=== PATIENT | male | born 1970 | race Caucasian/White ===

== ENCOUNTER 2019-11-15 10:02 | Emergency (ER) | payer SELFPAY ==
--- NOTE | 2019-11-15 11:26 | CR ---
Chest: Portable view of the chest was obtained. Comparison: No prior chest imaging is available. Heart size and mediastinum are normal. Linear density is noted within the left lung base most likely due to atelectasis. Lungs otherwise are clear. Bony structures are grossly intact. Impression: 1. Linear density within the left lung base most likely due to atelectasis. 2. Nothing acute is otherwise seen on portable chest x-ray. Diagnostic code #2 This report was dictated in MDT
--- NOTE | 2019-11-15 11:57 | EDM.PDOC ---
ED HPI GENERAL MEDICAL PROBLEM - General Chief Complaint: Chest Pain Stated Complaint: CHEST TIGHTNESS/FLU LIKE SYMPTOMS Time Seen by Provider: 11/15/19 10:36 Source of Information: Reports: Patient, RN Notes Reviewed - History of Present Illness INITIAL COMMENTS - FREE TEXT/NARRATIVE: 49 yr old male with cough, nasal lorraine., fever, chills, myalgias for about a 6 days. He covid tested neg. about 7 days ago. No difficulty breathing. Feels a little better today than yesterday. 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 [employer] Neurological History: Reports: Concussion Psychiatric History: Reports: None Endocrine/Metabolic History: Reports: None Hematologic History: Reports: None Immunologic History: Reports: None Oncologic (Cancer) History: Reports: None Dermatologic History: Reports: None - Infectious Disease History Infectious Disease History: Reports: Chicken Pox - Past Surgical History Head Surgeries/Procedures: Reports: None HEENT Surgical History: Reports: Oral Surgery Male Surgical History: Reports: None Social & Family History - Family History HEENT: Reports: None Cardiac: Reports: High Cholesterol, Hypertension Respiratory: Reports: None GI: Reports: None : Reports: None OBGYN: Reports: None Musculoskeletal: Reports: None Neurological: Reports: None Psychiatric: Reports: None Endocrine/Metabolic: Reports: Diabetes, type II Hematologic: Reports: None Immunologic: Reports: None Dermatologic: Reports: None Oncologic: Reports: Colon, Prostate - Tobacco Use Smoking Status *Q: Current Every Day Smoker Years of Tobacco use: 30 Packs/Tins Daily: 2.5 - Caffeine Use Caffeine Use: Reports: Coffee, Soda - Recreational Drug Use Recreational Drug Use: No ED ROS GENERAL - Review of Systems Review Of Systems: See Below Constitutional: Reports: Fever, Chills HEENT: Reports: Rhinitis, Throat Pain Respiratory: Reports: Cough. Denies: Shortness of Breath, Sputum Cardiovascular: Denies: Chest Pain Endocrine: Reports: Fatigue GI/Abdominal: Reports: Decreased Appetite. Denies: Abdominal Pain, Diarrhea, Vomiting Musculoskeletal: Reports: Other (generalized myalgias) Skin: Denies: Rash Neurological: Reports: Dizziness, Headache ED EXAM, GENERAL - Physical Exam Exam: See Below General Appearance: Alert, No Apparent Distress Head: Atraumatic Neck: Supple Respiratory/Chest: No Respiratory Distress, Lungs Clear, Normal Breath Sounds. No: Rhonchi, Wheezing Cardiovascular: Regular Rate, Rhythm Extremities: Normal Inspection, Normal Range of Motion Neurological: Alert, Oriented, No Motor/Sensory Deficits Skin Exam: Warm, Dry, Normal Color, No Rash Course - Vital Signs Last Recorded V/S: Last Vital Signs Temp 97.5 F 11/15/19 10:23 Pulse 76 11/15/19 10:23 Resp 18 11/15/19 10:23 BP 147/86 H 11/15/19 10:23 Pulse Ox 96 11/15/19 10:23 - Orders/Labs/Meds Orders: Active Orders 24 hr Category Date Time Status CORONAVIRUS COVID-19 PCR [facility]L Stat Lab 11/15/19 11:12 Received - Re-Assessments/Exams Free Text/Narrative Re-Assessment/Exam: 11/15/19 14:25 CXR nl, discharge instr. as documented. Departure - Departure Time of Disposition: 11:52 Disposition: Home, Self-Care 01 Condition: Fair Clinical Impression: Viral syndrome - Discharge Information Instructions: Viral Illness, Adult Referrals: PCP,None [Primary Care Provider] - Forms: ED Department Discharge, ED Department Discharge, ED Return to Work/School Form Additional Instructions: Your CXR does not show pneumonia. Your oxygen reading are good. Your symptoms strongly suggest you do have Covid infection. [facility] We will contact you in 2 to 3 days when your results become available to notify you of results. Self Isolate until you hear results. Tylenol if needed for fever or discomfort. Return to ED for severe difficulty breathing or otherwise as needed. Sepsis Event Note (ED) - Evaluation Sepsis Screening Result: No Definite Risk - Focused Exam Vital Signs: Vital Signs Temp Pulse Resp BP Pulse Ox 11/15/19 10:23 97.5 F 76 18 147/86 H 96 - My Orders Last 24 Hours: My Active Orders 11/15/19 11:12 CORONAVIRUS COVID-19 PCR PHL Stat - Assessment/Plan Last 24 Hours: My Active Orders 11/15/19 11:12 CORONAVIRUS COVID-19 PCR PHL Stat
== END 2019-11-15 12:07 | disposition home or self-care (01) ==
LOC: JD.ED 10:02
DX: B34.9 Viral infection, unspecified (principal); F17.210 Nicotine dependence, cigarettes, uncomplicated; Z20.828 Contact with and (suspected) exposure to other viral communicable diseases; Z91.030 Bee allergy status
CPT/HCPCS: 71045; 71045-26; 99282; 99283-25; U0002

== ENCOUNTER 2020-02-03 10:38 | Emergency (ER) | payer BC ==
[2020-02-03] MEDS ORDERED: Albuterol 6.7 GM Inhaler INH ONE (11:30)
--- NOTE | 2020-02-03 11:39 | EDM.PDOC ---
ED HPI GENERAL MEDICAL PROBLEM - General Chief Complaint: Chest Pain Stated Complaint: COVID +/SOB/CHEST PAIN/COUGH Time Seen by Provider: 02/03/20 11:01 Source of Information: Reports: Patient History Limitations: Reports: No Limitations - History of Present Illness INITIAL COMMENTS - FREE TEXT/NARRATIVE: The patient presents with a cough, shortness of breath and COVID 19 infection. He started having symptoms on 01/17. He was tested a few days after and it was negative. He was tested again on 01/24 and he tested positive. He has had fever, chills, headache, body aches, chest tightness, cough, shortness of breath and diarrhea. He is a former smoker. He has no health problems such as heart disease, HTN, hypercholesterolemia and diabetes. His significant other was seen here a few days ago and transferred to [facility] for admission. His symptoms are worse lately. Onset: Gradual Duration: Week(s): Location: Reports: Chest Quality: Reports: Other (tightness) Severity: Mild Improves with: Reports: None Worsens with: Reports: None Associated Symptoms: Reports: Chest Pain, Cough, Fever/Chills, Headaches, Shortness of Breath. Denies: Nausea/Vomiting Chest Pain Score (Numeric/FACES): 10 - Related Data Allergies Allergy/AdvReac Type Severity Reaction Status Date / Time bees Allergy Hives Uncoded 11/15/19 10:20 Home Meds: Home Meds dexAMETHasone [Dexamethasone] 1.5 tab PO DAILY #12 tab 02/03/20 [Rx] Past Medical History HEENT History: Reports: Impaired Vision Other HEENT History: wears eyeglasses Cardiovascular History: Reports: None Respiratory History: Reports: Pneumonia, Recurrent Gastrointestinal History: Reports: GERD Genitourinary History: Reports: None Musculoskeletal History: Reports: Back Pain, Chronic Other Musculoskeletal History: 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 Neurological History: Reports: Concussion, Migraines Psychiatric History: Reports: None Endocrine/Metabolic History: Reports: None Hematologic History: Reports: None Immunologic History: Reports: None Oncologic (Cancer) History: Reports: None Dermatologic History: Reports: None - Infectious Disease History Infectious Disease History: Reports: Chicken Pox, Influenza, Novel Coronavirus - Past Surgical History HEENT Surgical History: Reports: Oral Surgery, Other (See Below) Other HEENT Surgeries/Procedures: wisdom teeth extracted. Musculoskeletal Surgical History: Reports: Other (See Below) Other Musculoskeletal Surgeries/Procedures:: cyst removed T5-T6 area Social & Family History - Family History HEENT: Reports: None Cardiac: Reports: High Cholesterol, Hypertension Respiratory: Reports: None GI: Reports: None : Reports: None OBGYN: Reports: None Musculoskeletal: Reports: None Neurological: Reports: None Psychiatric: Reports: None Endocrine/Metabolic: Reports: Diabetes, type II Hematologic: Reports: None Immunologic: Reports: None Dermatologic: Reports: None Oncologic: Reports: Colon, Prostate - Tobacco Use Tobacco Use Status *Q: Former Tobacco User Years of Tobacco use: 20 Packs/Tins Daily: 2.5 Used Tobacco, but Quit: Yes Month/Year Tobacco Last Used: Oct 2019 - Caffeine Use Caffeine Use: Reports: Coffee, Tea - Recreational Drug Use Recreational Drug Use: No ED ROS GENERAL - Review of Systems Review Of Systems: See Below Constitutional: Reports: Fever, Chills, Malaise, Weakness, Fatigue HEENT: Reports: No Symptoms Respiratory: Reports: Shortness of Breath, Cough Cardiovascular: Reports: Chest Pain Endocrine: Reports: No Symptoms GI/Abdominal: Reports: Diarrhea. Denies: Abdominal Pain, Nausea, Vomiting : Reports: No Symptoms Musculoskeletal: Reports: No Symptoms Skin: Reports: No Symptoms ED EXAM, GENERAL - Physical Exam Exam: See Below Exam Limited By: No Limitations General Appearance: Alert, No Apparent Distress Ears: Normal External Exam Nose: Normal Inspection Head: Atraumatic, Normocephalic Neck: Normal Inspection Respiratory/Chest: No Respiratory Distress, Lungs Clear, Normal Breath Sounds Cardiovascular: Regular Rate, Rhythm, No Edema, No Murmur GI/Abdominal: Soft, Non-Tender, No Organomegaly, No Mass Back Exam: Normal Inspection Extremities: Normal Inspection Course - Vital Signs Last Recorded V/S: Last Vital Signs Temp 97.5 F 02/03/20 11:00 Pulse 96 02/03/20 11:00 Resp 22 H 02/03/20 11:00 BP 115/76 02/03/20 11:00 Pulse Ox 94 L 02/03/20 11:52 - Orders/Labs/Meds Orders: Active Orders 24 hr Category Date Time Status Cardiac Monitoring [RC] . DIRECTED Care 02/03/20 11:28 Active EKG Documentation Completion [RC] STAT Care 02/03/20 11:29 Active RT Post Treatment Assessment [RC] Click to Edit Care 02/03/20 11:30 Active RT Pre-Treatment Assessment [RC] Click to Edit Care 02/03/20 11:30 Active Chest 1V Frontal [CR] Stat Exams 02/03/20 11:29 Taken Labs: Laboratory Tests 02/03/20 02/03/20 02/03/20 Range/Units 11:59 11:59 11:59 WBC 4.11 L (4.23-9.07) K/mm3 RBC 5.66 (4.63-6.08) M/mm3 Hgb 14.8 (13.7-17.5) gm/dl Hct 43.3 (40.1-51.0) % MCV 76.5 L (79.0-92.2) fl MCH 26.1 (25.7-32.2) pg MCHC 34.2 (32.2-35.5) g/dl RDW Std Deviation 40.3 (35.1-43.9) fL Plt Count 132 L (163-337) K/mm3 MPV 11.4 (9.4-12.3) fl Neut % (Auto) 55.1 (34.0-67.9) % Lymph % (Auto) 33.6 (21.8-53.1) % [place] % (Auto) 10.9 (5.3-12.2) % Eos % (Auto) 0.2 L (0.8-7.0) Baso % (Auto) 0.2 (0.1-1.2) % Neut # (Auto) 2.26 (1.78-5.38) K/mm3 Lymph # (Auto) 1.38 (1.32-3.57) K/mm3 [place] # (Auto) 0.45 (0.30-0.82) K/mm3 Eos # (Auto) 0.01 L (0.04-0.54) K/mm3 Baso # (Auto) 0.01 (0.01-0.08) K/mm3 D-Dimer, Quantitative 0.48 (0.19-0.50) mg/L Sodium 139 (136-145) mEq/L Potassium 3.9 (3.5-5.1) mEq/L Chloride 104 (98-107) mEq/L Carbon Dioxide 18 L (21-32) mEq/L Anion Gap 20.9 H (5-15) BUN 14 (7-18) mg/dL Creatinine 1.1 (0.7-1.3) mg/dL Est Cr Clr Drug Dosing 77.62 mL/min Estimated GFR (MDRD) > 60 (>60) mL/min BUN/Creatinine Ratio 12.7 L (14-18) Glucose 101 (74-106) mg/dL Lactic Acid (0.4-2.0) mmol/L Calcium 8.5 (8.5-10.1) mg/dL Ferritin (26-388) ng/ml Total Bilirubin 0.5 (0.2-1.0) mg/dL AST 10 L (15-37) U/L ALT 41 (16-63) U/L Alkaline Phosphatase 100 (46-116) U/L Lactate Dehydrogenase 238 H (85-227) U/L Troponin I < 0.017 (0.00-0.056) ng/mL C-Reactive Protein 0.9 (<1.0) mg/dL Total Protein 7.2 (6.4-8.2) g/dl Albumin 3.5 (3.4-5.0) g/dl Globulin 3.7 gm/dL Albumin/Globulin Ratio 1.0 (1-2) 02/03/20 02/03/20 Range/Units 11:59 11:59 WBC (4.23-9.07) K/mm3 RBC (4.63-6.08) M/mm3 Hgb (13.7-17.5) gm/dl Hct (40.1-51.0) % MCV (79.0-92.2) fl MCH (25.7-32.2) pg MCHC (32.2-35.5) g/dl RDW Std Deviation (35.1-43.9) fL Plt Count (163-337) K/mm3 MPV (9.4-12.3) fl Neut % (Auto) (34.0-67.9) % Lymph % (Auto) (21.8-53.1) % [place] % (Auto) (5.3-12.2) % Eos % (Auto) (0.8-7.0) Baso % (Auto) (0.1-1.2) % Neut # (Auto) (1.78-5.38) K/mm3 Lymph # (Auto) (1.32-3.57) K/mm3 [place] # (Auto) (0.30-0.82) K/mm3 Eos # (Auto) (0.04-0.54) K/mm3 Baso # (Auto) (0.01-0.08) K/mm3 D-Dimer, Quantitative (0.19-0.50) mg/L Sodium (136-145) mEq/L Potassium (3.5-5.1) mEq/L Chloride (98-107) mEq/L Carbon Dioxide (21-32) mEq/L Anion Gap (5-15) BUN (7-18) mg/dL Creatinine (0.7-1.3) mg/dL Est Cr Clr Drug Dosing mL/min Estimated GFR (MDRD) (>60) mL/min BUN/Creatinine Ratio (14-18) Glucose (74-106) mg/dL Lactic Acid 0.9 (0.4-2.0) mmol/L Calcium (8.5-10.1) mg/dL Ferritin 592 H (26-388) ng/ml Total Bilirubin (0.2-1.0) mg/dL AST (15-37) U/L ALT (16-63) U/L Alkaline Phosphatase (46-116) U/L Lactate Dehydrogenase (85-227) U/L Troponin I (0.00-0.056) ng/mL C-Reactive Protein (<1.0) mg/dL Total Protein (6.4-8.2) g/dl Albumin (3.4-5.0) g/dl Globulin gm/dL Albumin/Globulin Ratio (1-2) Meds: Medications Discontinued Medications Generic Name Dose Route Start Last Admin Trade Name Freq PRN Reason Stop Dose Admin Albuterol 0 gm 02/03/20 11:30 02/03/20 11:45 Proventil Hfa INH 02/03/20 11:31 2 each ONETIME ONE Administration - Re-Assessments/Exams Free Text/Narrative Re-Assessment/Exam: 02/03/20 11:39 I ordered a CXR, labs and albuterol 2 puffs. 02/03/20 13:08 His CXR shows new bilateral peripheral pulmonary infiltrates and probable enlarged hilar lymph nodes. His WBC is a little low at 4.14. His D-dimer is negative. His anion gap is elevated at 20.4. His LDH is elevated at 238. His troponin is negative along with his CRP. His oxygen saturations do dip down to 89%. He does recover nicely. I do not feel he needs to be admitted at this time. I will get him on some dexamethasone and albuterol. Departure - Departure Time of Disposition: 13:15 Disposition: Home, Self-Care 01 Condition: Good Clinical Impression: COVID-19, Pneumonia due to COVID-19 virus Prescriptions: dexAMETHasone [Dexamethasone] 1.5 tab PO DAILY #12 tab Referrals: PCP,None [Primary Care Provider] - Kerri Mcgee NP [Nurse Practitioner] - 1 Week Forms: ED Department Discharge, ED Return to Work/School Form Additional Instructions: Take the dexamethasone 1.5 pills daily until gone. Take tylenol as needed for fever. Drink plenty of fluids. Use the inhaler 2 puffs every 6 hours. Try to get a pulse oximeter for home. If you are consistently below 90% please return. Sepsis Event Note (ED) - Evaluation Sepsis Screening Result: No Definite Risk - Focused Exam Vital Signs: Vital Signs Temp Pulse Resp BP Pulse Ox Pulse Ox 02/03/20 11:52 94 L 02/03/20 11:00 97.5 F 96 22 H 115/76 95 - My Orders Last 24 Hours: My Active Orders 02/03/20 11:28 Cardiac Monitoring [RC] . DIRECTED 02/03/20 11:29 EKG Documentation Completion [RC] STAT Chest 1V Frontal [CR] Stat 02/03/20 11:30 RT Post Treatment Assessment [RC] Click to Edit RT Pre-Treatment Assessment [RC] Click to Edit - Assessment/Plan Last 24 Hours: My Active Orders 02/03/20 11:28 Cardiac Monitoring [RC] . DIRECTED 02/03/20 11:29 EKG Documentation Completion [RC] STAT Chest 1V Frontal [CR] Stat 02/03/20 11:30 RT Post Treatment Assessment [RC] Click to Edit RT Pre-Treatment Assessment [RC] Click to Edit
--- NOTE | 2020-02-05 11:15 | CR ---
PROCEDURE INFORMATION: Exam: XR Chest, 1 View Exam date and time: 02/03/2020 11:16 AM Age: 49 years old Clinical indication: Chest pain and other: Covid-19 positive; Type not specified TECHNIQUE: Imaging protocol: XR of the chest Views: 1 view. COMPARISON: CR Chest 1V Frontal 11/15/2019 10:23 AM FINDINGS: Lungs: New areas peripheral infiltrate with consolidation in both mid lungs. Pleural space: Unremarkable. No pleural effusion. No pneumothorax. Heart/Mediastinum: New slight bilateral hilar prominence likely enlarged lymph nodes. No cardiomegaly. Vasculature: Aortic calcifications. Bones/joints: Unremarkable. IMPRESSION: New bilateral peripheral pulmonary infiltrates and probable enlarged hilar lymph nodes. Thank you for allowing us to participate in the care of your patient. Dictated and Authenticated by: Kelly Ann MD 02/03/2020 12:53 PM Central Time ([place] & [place]) SAM
== END 2020-02-03 13:55 | disposition home or self-care (01) ==
LOC: JD.ED 10:38
DX: U07.1 COVID-19 (principal); J12.89 Other viral pneumonia; R74.02 Elevation of levels of lactic acid dehydrogenase [LDH]; R79.89 Other specified abnormal findings of blood chemistry; Z91.030 Bee allergy status; Z87.891 Personal history of nicotine dependence
CPT/HCPCS: 36415; 71045; 80053; 82728; 83605; 83615; 84484; 85025; 85379; 86140; 93005; 94640; 99285; A9270; 93010; 99284

== ENCOUNTER 2020-02-14 15:14 | Emergency (ER) | payer BC ==
[2020-02-14] MEDS ORDERED: Sodium Chloride 0.9% 10 ML Syringe FLUSH PRN (15:40)
--- NOTE | 2020-02-14 16:22 | CR ---
Chest: 2 views of the chest were obtained. Comparison: No previous study. Findings: Lungs: Patchy increased density is noted within the right perihilar region and more prominent within the right base. Left lung is fairly well clear. Heart and mediastinum Heart size and mediastinum are normal. No mediastinal mass is seen. Osseous: Mild scattered disc space narrowing within the spine is seen with minimal scattered endplate osteophytes. Impression: 1. Findings within the right lung suspicious for areas of pneumonia. Given their distribution, findings are most likely due to COVID etiology. Diagnostic code #3
--- NOTE | 2020-02-14 16:38 | EDM.PDOC ---
ED HPI GENERAL MEDICAL PROBLEM - General Chief Complaint: Respiratory Problem Stated Complaint: COUGH/HEADACHE/SOB Time Seen by Provider: 02/14/20 15:19 Source of Information: Reports: Patient, RN Notes Reviewed History Limitations: Reports: No Limitations - History of Present Illness INITIAL COMMENTS - FREE TEXT/NARRATIVE: Patient is a 49-year-old male presenting to the emergency department with complaints of ongoing shortness of breath, cough, chest tightness, palpitations, and fatigue. He was diagnosed with Covid on January 19. He was on quarantine up until February 07 which is when he returned back to work. Symptoms of cough, shortness of breath, chest tightness have not resolved since initial diagnosis. He was on a course of steroids which he states he completed this last Wednesday. They did help somewhat. He is also using albuterol inhaler which she states does mildly improve his symptoms and makes him "more tolerable ". He does not have a primary care provider. Denies any cardiac or respiratory history, but states he does have a family history of cardiac disease. Chest Pain Score (Numeric/FACES): 10 - Related Data Allergies Allergy/AdvReac Type Severity Reaction Status Date / Time bees Allergy Hives Uncoded 02/14/20 15:25 Home Meds: Home Meds Albuterol Sulfate [Albuterol Sulfate Hfa] 18 gm IH Q4HR PRN 02/14/20 [History] Azithromycin 250 mg PO ASDIRECTED 5 Days #6 tablet 02/14/20 [Rx] Past Medical History HEENT History: Reports: Impaired Vision Other HEENT History: wears eyeglasses Cardiovascular History: Reports: None Respiratory History: Reports: Pneumonia, Recurrent Gastrointestinal History: Reports: GERD Genitourinary History: Reports: None Musculoskeletal History: Reports: Back Pain, Chronic Other Musculoskeletal History: 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, 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 [employer] Neurological History: Reports: Concussion, Migraines Psychiatric History: Reports: None Endocrine/Metabolic History: Reports: None Hematologic History: Reports: None Immunologic History: Reports: None Oncologic (Cancer) History: Reports: None Dermatologic History: Reports: None - Infectious Disease History Infectious Disease History: Reports: Chicken Pox, Influenza, Novel Coronavirus - Past Surgical History Head Surgeries/Procedures: Reports: None HEENT Surgical History: Reports: Oral Surgery, Other (See Below) Other HEENT Surgeries/Procedures: wisdom teeth extracted. Male Surgical History: Reports: None Musculoskeletal Surgical History: Reports: Other (See Below) Other Musculoskeletal Surgeries/Procedures:: cyst removed T5-T6 area Social & Family History - Family History HEENT: Reports: None Cardiac: Reports: High Cholesterol, Hypertension Respiratory: Reports: None GI: Reports: None : Reports: None OBGYN: Reports: None Musculoskeletal: Reports: None Neurological: Reports: None Psychiatric: Reports: None Endocrine/Metabolic: Reports: Diabetes, type II Hematologic: Reports: None Immunologic: Reports: None Dermatologic: Reports: None Oncologic: Reports: Colon, Prostate - Tobacco Use Tobacco Use Status *Q: Former Tobacco User Used Tobacco, but Quit: Yes Month/Year Tobacco Last Used: 09/2019 - Caffeine Use Caffeine Use: Reports: Coffee, Tea - Recreational Drug Use Recreational Drug Use: No ED ROS GENERAL - Review of Systems Review Of Systems: See Below Constitutional: Reports: Fatigue, Diaphoresis. Denies: Fever, Chills HEENT: Reports: No Symptoms Respiratory: Reports: Shortness of Breath, Pleuritic Chest Pain, Cough Cardiovascular: Reports: Dyspnea on Exertion, Lightheadedness, Palpitations. Denies: Edema, Syncope Endocrine: Reports: No Symptoms GI/Abdominal: Reports: No Symptoms : Reports: No Symptoms Musculoskeletal: Reports: No Symptoms Skin: Reports: No Symptoms Neurological: Reports: Headache Psychiatric: Reports: No Symptoms Hematologic/Lymphatic: Reports: No Symptoms Immunologic: Reports: No Symptoms ED EXAM, GENERAL - Physical Exam Exam: See Below General Appearance: Alert, WD/WN, No Apparent Distress Respiratory/Chest: No Respiratory Distress, Lungs Clear, Normal Breath Sounds, No Accessory Muscle Use, Chest Non-Tender, Other (Dry cough with deep breathing) Cardiovascular: Normal Peripheral Pulses, Regular Rate, Rhythm, No Edema, No Gallop, No JVD, No Murmur, No Rub GI/Abdominal: Normal Bowel Sounds, Soft, Non-Tender, No Organomegaly, No Distention, No Abnormal Bruit, No Mass Neurological: Alert, Oriented, CN II-XII Intact, Normal Cognition, Normal Gait, Normal Reflexes, No Motor/Sensory Deficits Psychiatric: Normal Affect, Normal Mood Skin Exam: Warm, Dry, Intact, Normal Color, No Rash #1 Interpretation EKG Date: 02/14/20 Time: 16:23 Rhythm: NSR Rate (Beats/Min): 90 [place]: Normal P-Wave: Present QRS: Normal ST-T: Normal QT: Normal Course - Vital Signs Last Recorded V/S: Last Vital Signs Temp 96.6 F L 02/14/20 17:06 Pulse 91 02/14/20 17:06 Resp 16 02/14/20 17:06 BP 120/80 02/14/20 17:06 Pulse Ox 96 02/14/20 17:06 - Orders/Labs/Meds Labs: Laboratory Tests 02/14/20 02/14/20 02/14/20 Range/Units 15:46 15:46 15:46 WBC 10.35 H (4.23-9.07) K/mm3 RBC 5.68 (4.63-6.08) M/mm3 Hgb 14.1 (13.7-17.5) gm/dl Hct 44.5 (40.1-51.0) % MCV 78.3 L (79.0-92.2) fl MCH 24.8 L (25.7-32.2) pg MCHC 31.7 L (32.2-35.5) g/dl RDW Std Deviation 41.5 (35.1-43.9) fL Plt Count 189 (163-337) K/mm3 MPV 10.4 (9.4-12.3) fl Neut % (Auto) 63.4 (34.0-67.9) % Lymph % (Auto) 21.5 L (21.8-53.1) % [place] % (Auto) 13.1 H (5.3-12.2) % Eos % (Auto) 1.0 (0.8-7.0) Baso % (Auto) 0.1 (0.1-1.2) % Neut # (Auto) 6.56 H (1.78-5.38) K/mm3 Lymph # (Auto) 2.23 (1.32-3.57) K/mm3 [place] # (Auto) 1.36 H (0.30-0.82) K/mm3 Eos # (Auto) 0.10 (0.04-0.54) K/mm3 Baso # (Auto) 0.01 (0.01-0.08) K/mm3 Manual Slide Review Normal smear D-Dimer, Quantitative 0.34 (0.19-0.50) mg/L Sodium 140 (136-145) mEq/L Potassium 4.7 (3.5-5.1) mEq/L Chloride 106 (98-107) mEq/L Carbon Dioxide 22 (21-32) mEq/L Anion Gap 16.7 H (5-15) BUN 16 (7-18) mg/dL Creatinine 0.9 (0.7-1.3) mg/dL Est Cr Clr Drug Dosing 94.87 mL/min Estimated GFR (MDRD) > 60 (>60) mL/min BUN/Creatinine Ratio 17.8 (14-18) Glucose 118 H (74-106) mg/dL Calcium 9.1 (8.5-10.1) mg/dL Total Bilirubin 0.5 (0.2-1.0) mg/dL AST 17 (15-37) U/L ALT 36 (16-63) U/L Alkaline Phosphatase 84 (46-116) U/L Troponin I < 0.017 (0.00-0.056) ng/mL C-Reactive Protein 2.8 H* (<1.0) mg/dL NT-Pro-B Natriuret Pep (0-125) pg/mL Total Protein 7.1 (6.4-8.2) g/dl Albumin 2.9 L (3.4-5.0) g/dl Globulin 4.2 gm/dL Albumin/Globulin Ratio 0.7 L (1-2) Urine Color (Yellow) Urine Appearance (Clear) Urine pH (5.0-8.0) Ur Specific [place] (1.005-1.030) Urine Protein (Negative) Urine Glucose (UA) (Negative) Urine Ketones (Negative) Urine Occult Blood (Negative) Urine Nitrite (Negative) Urine Bilirubin (Negative) Urine Urobilinogen (0.2-1.0) Ur Leukocyte Esterase (Negative) Urine RBC (0-5) /hpf Urine WBC (0-5) /hpf Ur Squamous Epith Cells (0-5) /hpf Amorphous Sediment (NOT SEEN) /hpf Urine Bacteria (FEW) /hpf Urine Mucus (FEW) /hpf 02/14/20 02/14/20 Range/Units 15:46 16:15 WBC (4.23-9.07) K/mm3 RBC (4.63-6.08) M/mm3 Hgb (13.7-17.5) gm/dl Hct (40.1-51.0) % MCV (79.0-92.2) fl MCH (25.7-32.2) pg MCHC (32.2-35.5) g/dl RDW Std Deviation (35.1-43.9) fL Plt Count (163-337) K/mm3 MPV (9.4-12.3) fl Neut % (Auto) (34.0-67.9) % Lymph % (Auto) (21.8-53.1) % [place] % (Auto) (5.3-12.2) % Eos % (Auto) (0.8-7.0) Baso % (Auto) (0.1-1.2) % Neut # (Auto) (1.78-5.38) K/mm3 Lymph # (Auto) (1.32-3.57) K/mm3 [place] # (Auto) (0.30-0.82) K/mm3 Eos # (Auto) (0.04-0.54) K/mm3 Baso # (Auto) (0.01-0.08) K/mm3 Manual Slide Review D-Dimer, Quantitative (0.19-0.50) mg/L Sodium (136-145) mEq/L Potassium (3.5-5.1) mEq/L Chloride (98-107) mEq/L Carbon Dioxide (21-32) mEq/L Anion Gap (5-15) BUN (7-18) mg/dL Creatinine (0.7-1.3) mg/dL Est Cr Clr Drug Dosing mL/min Estimated GFR (MDRD) (>60) mL/min BUN/Creatinine Ratio (14-18) Glucose (74-106) mg/dL Calcium (8.5-10.1) mg/dL Total Bilirubin (0.2-1.0) mg/dL AST (15-37) U/L ALT (16-63) U/L Alkaline Phosphatase (46-116) U/L Troponin I (0.00-0.056) ng/mL C-Reactive Protein (<1.0) mg/dL NT-Pro-B Natriuret Pep 18 (0-125) pg/mL Total Protein (6.4-8.2) g/dl Albumin (3.4-5.0) g/dl Globulin gm/dL Albumin/Globulin Ratio (1-2) Urine Color Yellow (Yellow) Urine Appearance Clear (Clear) Urine pH 7.0 (5.0-8.0) Ur Specific [place] 1.025 (1.005-1.030) Urine Protein Negative (Negative) Urine Glucose (UA) Negative (Negative) Urine Ketones Negative (Negative) Urine Occult Blood Negative (Negative) Urine Nitrite Negative (Negative) Urine Bilirubin Negative (Negative) Urine Urobilinogen 0.2 (0.2-1.0) Ur Leukocyte Esterase Negative (Negative) Urine RBC 0-5 (0-5) /hpf Urine WBC 0-5 (0-5) /hpf Ur Squamous Epith Cells 0-5 (0-5) /hpf Amorphous Sediment Few H (NOT SEEN) /hpf Urine Bacteria Few (FEW) /hpf Urine Mucus Few (FEW) /hpf Meds: Medications Discontinued Medications Generic Name Dose Route Start Last Admin Trade Name Freq PRN Reason Stop Dose Admin Sodium Chloride 10 ml 02/14/20 15:40 02/14/20 15:50 Saline Flush FLUSH 10 ml ASDIRECTED PRN Administration Keep Vein Open - Re-Assessments/Exams Free Text/Narrative Re-Assessment/Exam: 02/14/20 16:56 Work-up was significant for WBC minimally elevated at 10.35, anion gap 16.7, CRP 2.8. Troponin and D-dimer both negative. Chest x-ray shows findings within the right lung suspicious for areas of pneumonia. Given the distribution, findings are most likely due to Covid etiology. This is a slight improvement from his previous visit 2 weeks ago. Discussed with patient that he should rest and increase fluid intake. I am going to put him on a prescription for azithromycin to cover for any possible secondary bacterial pneumonia. Will write him a note off from work for another week. I will send a referral to Eveline Gregorio NP. Recommend he follow-up with her on Wednesday or Wednesday of next week for reevaluation. If she does not feel he is ready to go back to work, he can provide her with another work note at that time. Discharge instructions as documented. Departure - Departure Time of Disposition: 16:56 Disposition: Home, Self-Care 01 Condition: Good Clinical Impression: Pneumonia due to COVID-19 virus - Discharge Information *PRESCRIPTION DRUG MONITORING PROGRAM REVIEWED*: No *COPY OF PRESCRIPTION DRUG MONITORING REPORT IN PATIENT LACY: No Prescriptions: Azithromycin 250 mg PO ASDIRECTED 5 Days #6 tablet Instructions: COVID-19 Frequently Asked Questions, COVID-19 Referrals: Eveline Gregorio NP [Nurse Practitioner] - Forms: ED Department Discharge, ED Return to Work/School Form Additional Instructions: You were seen in the emergency department today for ongoing shortness of breath, chest tightness, cough, and fatigue with a history of Covid diagnosis on January 19. Work-up included blood work, an EKG, and a chest x-ray. Results of your work-up show that you do still have a mild pneumonia in your right lung. As we discussed, this is likely Covid pneumonia, however to cover for possible secondary bacterial infection, you have been started on azithromycin. Take this medication as prescribed. Recommend rest and increase fluid intake. You have been provided a note off from work for an additional week. A referral has been sent to Eveline Gregorio NP. Call to make an appointment with her for Wednesday of next week for reevaluation. If her symptoms have not improved by that time, she may provide you with an additional work note. Return to ER as needed. Sepsis Event Note (ED) - Evaluation Sepsis Screening Result: No Definite Risk
== END 2020-02-14 17:12 | disposition home or self-care (01) ==
LOC: JD.ED 15:14
DX: U07.1 COVID-19 (principal); J12.89 Other viral pneumonia; D72.829 Elevated white blood cell count, unspecified; Z87.891 Personal history of nicotine dependence; Z91.030 Bee allergy status
CPT/HCPCS: 36415; 71046; 71046-26; 80053; 81001; 83880; 84484; 85025; 85379; 86140; 93005; 93010; 99283; 99285-25

== ENCOUNTER 2020-02-27 03:31 | Emergency (ER) | payer BC ==
--- NOTE | 2020-02-27 03:54 | EDM.PDOC ---
ED HPI GENERAL MEDICAL PROBLEM - General Chief Complaint: General Stated Complaint: chest tightness burning in lungs Time Seen by Provider: 02/27/20 03:53 - History of Present Illness INITIAL COMMENTS - FREE TEXT/NARRATIVE: 49-year-old male presents the emergency room with several complaints related to getting over Covid. First he was treated for a suspected secondary bacterial infection about 12 days ago with Zithromax. He is done with Zithromax he is using his inhaler which helps quite a bit but he has to continue using the inhaler he uses a self for 5 times a day. He is unable to cough up anything. And he has still has some chest irritation secondary to this over time this is probably getting a little better. Patient does not have any chest pain or chest pressure. His main complaint is tingling and pain in his lower legs and to a lesser degree in his upper extremities. It is getting to the point where it is difficult for him to get sleep his legs will twitch. But he has this constant burning sensation in the anterior surfaces of his thigh but he has this other burning sensation that covers his lower extremities. And this is really get to be problematic for him it really gets in the way of him getting any reasonable sleep at night he has been trying to sleep since about 10:00 this evening with absolutely no success he gets a twitching motion in his legs on top of this. - Related Data Allergies Allergy/AdvReac Type Severity Reaction Status Date / Time bees Allergy Hives Uncoded 02/27/20 03:43 Home Meds: Home Meds Albuterol Sulfate [Albuterol Sulfate Hfa] 18 gm IH Q4HR PRN 02/14/20 [History] Azithromycin 250 mg PO ASDIRECTED 5 Days #6 tablet 02/14/20 [Rx] Gabapentin [Neurontin] 300 mg PO ASDIRECTED #60 cap 02/27/20 [Rx] Gabapentin [Neurontin] 300 mg PO ASDIRECTED #60 cap 02/27/20 [Rx] Past Medical History HEENT History: Reports: Impaired Vision Other HEENT History: wears eyeglasses Cardiovascular History: Reports: None Respiratory History: Reports: Pneumonia, Recurrent Gastrointestinal History: Reports: GERD Genitourinary History: Reports: None Musculoskeletal History: Reports: Back Pain, Chronic Other Musculoskeletal History: 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, [employer] at [employer] Neurological History: Reports: Concussion, Migraines Psychiatric History: Reports: None Endocrine/Metabolic History: Reports: None Hematologic History: Reports: None Immunologic History: Reports: None Oncologic (Cancer) History: Reports: None Dermatologic History: Reports: None - Infectious Disease History Infectious Disease History: Reports: Chicken Pox, Influenza, Novel Coronavirus - Past Surgical History Head Surgeries/Procedures: Reports: None HEENT Surgical History: Reports: Oral Surgery, Other (See Below) Other HEENT Surgeries/Procedures: wisdom teeth extracted. Male Surgical History: Reports: None Musculoskeletal Surgical History: Reports: Other (See Below) Other Musculoskeletal Surgeries/Procedures:: cyst removed T5-T6 area Social & Family History - Family History HEENT: Reports: None Cardiac: Reports: High Cholesterol, Hypertension Respiratory: Reports: None GI: Reports: None : Reports: None OBGYN: Reports: None Musculoskeletal: Reports: None Neurological: Reports: None Psychiatric: Reports: None Endocrine/Metabolic: Reports: Diabetes, type II Hematologic: Reports: None Immunologic: Reports: None Dermatologic: Reports: None Oncologic: Reports: Colon, Prostate - Tobacco Use Tobacco Use Status *Q: Former Tobacco User Used Tobacco, but Quit: Yes Month/Year Tobacco Last Used: 6 months ago - Caffeine Use Caffeine Use: Reports: Coffee - Recreational Drug Use Recreational Drug Use: No ED ROS GENERAL - Review of Systems Review Of Systems: See Below Constitutional: Reports: No Symptoms. Denies: Fever, Chills HEENT: Reports: No Symptoms Respiratory: Reports: Pleuritic Chest Pain, Cough. Denies: Shortness of Breath, Wheezing, Sputum Cardiovascular: Denies: Dyspnea on Exertion, Edema, Orthopnea GI/Abdominal: Reports: No Symptoms Musculoskeletal: Reports: Back Pain, Leg Pain Skin: Reports: No Symptoms Neurological: Reports: Other (Pins and needle sensation in his lower extr emities) ED EXAM, GENERAL - Physical Exam Exam: See Below Exam Limited By: No Limitations General Appearance: Alert, No Apparent Distress Head: Atraumatic, Normocephalic Neck: Normal Inspection, Supple, Non-Tender, Full Range of Motion. No: Tender Midline, Thyromegaly Respiratory/Chest: No Respiratory Distress, Lungs Clear, Normal Breath Sounds Cardiovascular: Regular Rate, Rhythm, No Edema, No Murmur GI/Abdominal: Normal Bowel Sounds, Soft, Non-Tender Extremities: Normal Inspection, No Pedal Edema Neurological: Alert, Oriented, Normal Cognition Course - Vital Signs Last Recorded V/S: Last Vital Signs Temp 36.9 C 02/27/20 03:38 Pulse 84 02/27/20 03:38 Resp 16 02/27/20 03:38 BP 143/93 H 02/27/20 03:38 Pulse Ox 96 02/27/20 03:38 - Orders/Labs/Meds Labs: Laboratory Tests 02/27/20 02/27/20 Range/Units 04:25 04:25 WBC 6.56 (4.23-9.07) K/mm3 RBC 5.28 (4.63-6.08) M/mm3 Hgb 13.3 L (13.7-17.5) gm/dl Hct 41.5 (40.1-51.0) % MCV 78.6 L (79.0-92.2) fl MCH 25.2 L (25.7-32.2) pg MCHC 32.0 L (32.2-35.5) g/dl RDW Std Deviation 41.7 (35.1-43.9) fL Plt Count 170 (163-337) K/mm3 MPV 10.2 (9.4-12.3) fl Neut % (Auto) 52.9 (34.0-67.9) % Lymph % (Auto) 30.3 (21.8-53.1) % [place] % (Auto) 9.1 (5.3-12.2) % Eos % (Auto) 7.0 (0.8-7.0) Baso % (Auto) 0.5 (0.1-1.2) % Neut # (Auto) 3.47 (1.78-5.38) K/mm3 Lymph # (Auto) 1.99 (1.32-3.57) K/mm3 [place] # (Auto) 0.60 (0.30-0.82) K/mm3 Eos # (Auto) 0.46 (0.04-0.54) K/mm3 Baso # (Auto) 0.03 (0.01-0.08) K/mm3 Sodium 140 (136-145) mEq/L Potassium 3.4 L (3.5-5.1) mEq/L Chloride 108 H (98-107) mEq/L Carbon Dioxide 23 (21-32) mEq/L Anion Gap 12.4 (5-15) BUN 19 H (7-18) mg/dL Creatinine 1.0 (0.7-1.3) mg/dL Est Cr Clr Drug Dosing 85.38 mL/min Estimated GFR (MDRD) > 60 (>60) mL/min BUN/Creatinine Ratio 19.0 H (14-18) Glucose 116 H (74-106) mg/dL Calcium 8.5 (8.5-10.1) mg/dL Magnesium 2.2 (1.8-2.4) mg/dl Total Bilirubin 0.4 (0.2-1.0) mg/dL AST 17 (15-37) U/L ALT 43 (16-63) U/L Alkaline Phosphatase 86 (46-116) U/L Total Protein 7.1 (6.4-8.2) g/dl Albumin 3.4 (3.4-5.0) g/dl Globulin 3.7 gm/dL Albumin/Globulin Ratio 0.9 L (1-2) TSH 3rd Generation 2.983 (0.358-3.74) uIU/mL Meds: Medications Discontinued Medications Generic Name Dose Route Start Last Admin Trade Name Freq PRN Reason Stop Dose Admin Potassium Chloride 40 meq 02/27/20 05:21 Klor-Con M20 PO 02/27/20 05:22 ONETIME ONE - Re-Assessments/Exams Free Text/Narrative Re-Assessment/Exam: 02/27/20 05:47 Describing is very consistent with a peripheral neuropathy much worse in the lower extremities with a component of anterior femoral cutaneous nerve involvement. He also could be describing restless leg but with discussion with him I think he has a component of both. This is getting to the point where it is interfering with a normal sleep pattern which in turn gets in the way of normal living. I have discussed the pros and cons of medical therapy for this and he wants anything done because he is that bad off. Fortunately gabapentin treats both of these fairly well unfortunately with restless leg usually dose it up to 900 mg a couple hours before bed with neuropathy it needs to be taken 3 times a day. At this point will start 300 mg a couple hours before bedtime and see how it does. He needs close follow-up with his regular provider and should try and follow-up in a week which might be difficult with the holidays. I will instruct him to start out at 300 mg a day and then go to 600 mg a day in 1 week Departure - Departure Time of Disposition: 06:00 Disposition: Home, Self-Care 01 Clinical Impression: Peripheral neuropathy, Restless leg syndrome - Discharge Information Referrals: Latisha Pastor PA-C [Primary Care Provider] - Forms: ED Department Discharge Additional Instructions: Return to the emergency room with any questions problems or worsening symptoms. You have been started on Neurontin. This is to help with restless leg and also helps with peripheral nerve irritations. Take 1 300 mg capsule a couple hours before bedtime and do this for 1 week if you need to increase the dose after 1 week go to 2 capsules. Follow-up with your regular healthcare provider as soon as you can this might be difficult with the holidays but call for an appointment later today to get a appointment scheduled. Sepsis Event Note (ED) - Evaluation Sepsis Screening Result: No Definite Risk - Focused Exam Vital Signs: Vital Signs Temp Pulse Resp BP Pulse Ox 02/27/20 03:38 36.9 C 84 16 143/93 H 96
[2020-02-27] MEDS ORDERED: Potassium Chloride 20 MEQ Tab.ER PO ONE (05:21)
== END 2020-02-27 06:21 | disposition home or self-care (01) ==
LOC: JD.ED 03:31
DX: G62.9 Polyneuropathy, unspecified (principal); G25.81 Restless legs syndrome; Z87.891 Personal history of nicotine dependence; Z91.030 Bee allergy status
CPT/HCPCS: 36415; 80053; 83735; 84443; 85025; 99284; A9270

== ENCOUNTER 2020-07-18 16:05 | Emergency (ER) | payer BC, OTHER ==
[2020-07-18] MEDS ORDERED: Famotidine 20 MG/2 ML SDV IVPUSH ONE (16:20)
[2020-07-18] MEDS ORDERED: Famotidine 20 MG/2 ML SDV ONE (16:29)
--- NOTE | 2020-07-18 18:55 | EDM.PDOC ---
ED HPI GENERAL MEDICAL PROBLEM - General Chief Complaint: Allergic Reaction Stated Complaint: [facility] Time Seen by Provider: 07/18/20 16:20 Source of Information: Reports: Patient History Limitations: Reports: No Limitations, Other (ED vital signs reveal a temp of 98.1, pulse of 88, respiratory rate of 18, blood pressure 137/82, pulse ox of 94% on room air) - History of Present Illness INITIAL COMMENTS - FREE TEXT/NARRATIVE: 49-year-old male presents the emergency department today with complaints of allergic reaction type symptoms after receiving his first Covid vaccine today. The patient was at the Covid clinic and received his first Covid vaccine. Clinic staff asked him to wait there for approximately 30 minutes after the vaccine due to his history of allergy to bee stings. He states he was there for approximately 25 minutes when he developed tingling to his tongue his lips, chest pressure and tingling to his bilateral upper extremities. EMS was then called. The patient received a shot of subcu epi, and 50 mg of IM Benadryl. Ambulance gave him an albuterol nebulizer treatment in route to the hospital. Once he arrived at the hospital he states that he is still having tingling to his tongue and lips however it is significantly decreased. He states that the tingling that he noted in his arms is now gone however he still does have slight pressure to his chest. He does admit to being to a 2-1/2 pack a day smoker for the past 20+ years. - Related Data Allergies Allergy/AdvReac Type Severity Reaction Status Date / Time bees Allergy Hives Uncoded 07/18/20 16:21 Home Meds: Home Meds Albuterol Sulfate [Albuterol Sulfate Hfa] 18 gm IH Q4HR PRN 02/14/20 [History] Azithromycin 250 mg PO ASDIRECTED 5 Days #6 tablet 02/14/20 [Rx] Gabapentin [Neurontin] 300 mg PO ASDIRECTED #60 cap 02/27/20 [Rx] Gabapentin [Neurontin] 300 mg PO ASDIRECTED #60 cap 02/27/20 [Rx] Past Medical History HEENT History: Reports: Impaired Vision Other HEENT History: wears eyeglasses Cardiovascular History: Reports: None Respiratory History: Reports: Pneumonia, Recurrent Gastrointestinal History: Reports: GERD Genitourinary History: Reports: None Musculoskeletal History: Reports: Back Pain, Chronic Other Musculoskeletal History: 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, 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 Neurological History: Reports: Concussion, Migraines Psychiatric History: Reports: None Endocrine/Metabolic History: Reports: None Hematologic History: Reports: None Immunologic History: Reports: None Oncologic (Cancer) History: Reports: None Dermatologic History: Reports: None - Infectious Disease History Infectious Disease History: Reports: Chicken Pox, Influenza, Novel Coronavirus - Past Surgical History Head Surgeries/Procedures: Reports: None HEENT Surgical History: Reports: Oral Surgery, Other (See Below) Other HEENT Surgeries/Procedures: wisdom teeth extracted. Male Surgical History: Reports: None Musculoskeletal Surgical History: Reports: Other (See Below) Other Musculoskeletal Surgeries/Procedures:: cyst removed T5-T6 area Social & Family History - Family History HEENT: Reports: None Cardiac: Reports: High Cholesterol, Hypertension Respiratory: Reports: None GI: Reports: None : Reports: None OBGYN: Reports: None Musculoskeletal: Reports: None Neurological: Reports: None Psychiatric: Reports: None Endocrine/Metabolic: Reports: Diabetes, type II Hematologic: Reports: None Immunologic: Reports: None Dermatologic: Reports: None Oncologic: Reports: Colon, Prostate - Tobacco Use Tobacco Use Status *Q: Current Every Day Tobacco User Years of Tobacco use: 30 Packs/Tins Daily: 0.2 - Caffeine Use Caffeine Use: Reports: Coffee ED ROS ALLERGIC REACTION - Review of Systems Review Of Systems: Comprehensive ROS is negative, except as noted in HPI. ED EXAM GENERAL NO PERIP PULSE - Physical Exam Exam: See Below Exam Limited By: No Limitations General Appearance: Alert, WD/WN, No Apparent Distress Ears: Normal External Exam, Hearing Grossly Normal Nose: Normal Inspection Throat/Mouth: Normal Inspection, Normal Lips, Normal Gums, Normal Oropharynx, Normal Voice, No Airway Compromise, Other (No swelling noted under the tongue) Head: Atraumatic, Normocephalic Neck: Normal Inspection, Supple, Non-Tender, Full Range of Motion Respiratory/Chest: No Respiratory Distress, Lungs Clear, Normal Breath Sounds, No Accessory Muscle Use, Chest Non-Tender Cardiovascular: Normal Peripheral Pulses, Regular Rate, Rhythm, No Edema, No Murmur GI/Abdominal: Normal Bowel Sounds, Soft, Non-Tender, No Distention (Male) Exam: Deferred Rectal (Males) Exam: Deferred Back Exam: Normal Inspection, Full Range of Motion Extremities: Normal Inspection, Normal Range of Motion, Non-Tender, No Pedal E carter, Normal Capillary Refill Neurological: Alert, Oriented, Normal Cognition Psychiatric: Normal Affect, Normal Mood Skin Exam: Warm, Dry, Intact, Normal Color, No Rash Lymphatic: No Adenopathy Course - Vital Signs Text/Narrative:: Patient presents with allergic type response to Covid vaccine just prior to arrival. States he developed numbness and tingling to his tongue and lips. He states he developed chest pressure and shortness of breath and numbness and tingling to his bilateral upper extremities. He was given Benadryl, epinephrine, and an albuterol nebulizer treatment in route to the hospital. Once he arrived at the hospital he states that chest pressure is significantly less and the numbness and tingling to his tongue and lips have almost resolved. Numbness and tingling to his upper extremities is gone. I have ordered for the patient to receive 20 mg of Pepcid IV x1 now. I have ordered labs, EKG, and a chest x-ray on this patient. Last Recorded V/S: Last Vital Signs Temp 98.1 F 07/18/20 16:15 Pulse 88 07/18/20 16:15 Resp 18 07/18/20 16:15 BP 137/82 07/18/20 16:15 Pulse Ox 94 L 07/18/20 16:15 - Orders/Labs/Meds Orders: Active Orders 24 hr Category Date Time Status Chest 1V Frontal [CR] Stat Exams 07/18/20 16:55 Taken COMPREHENSIVE METABOLIC PN,CMP [CHEM] Stat Lab 07/18/20 17:10 Results TROPONIN I [CHEM] Stat Lab 07/18/20 17:10 Results Labs: Laboratory Tests 07/18/20 07/18/20 Range/Units 17:10 17:10 WBC 9.53 H (4.23-9.07) K/mm3 RBC 5.98 (4.63-6.08) M/mm3 Hgb 16.5 D (13.7-17.5) gm/dl Hct 47.4 (40.1-51.0) % MCV 79.3 (79.0-92.2) fl MCH 27.6 (25.7-32.2) pg MCHC 34.8 (32.2-35.5) g/dl RDW Std Deviation 42.1 (35.1-43.9) fL Plt Count 179 (163-337) K/mm3 MPV 10.8 (9.4-12.3) fl Neut % (Auto) 71.8 H (34.0-67.9) % Lymph % (Auto) 19.4 L (21.8-53.1) % [place] % (Auto) 7.1 (5.3-12.2) % Eos % (Auto) 0.9 (0.8-7.0) Baso % (Auto) 0.3 (0.1-1.2) % Neut # (Auto) 6.83 H (1.78-5.38) K/mm3 Lymph # (Auto) 1.85 (1.32-3.57) K/mm3 [place] # (Auto) 0.68 (0.30-0.82) K/mm3 Eos # (Auto) 0.09 (0.04-0.54) K/mm3 Baso # (Auto) 0.03 (0.01-0.08) K/mm3 Sodium 138 (136-145) mEq/L Potassium 3.7 (3.5-5.1) mEq/L Chloride 103 (98-107) mEq/L Carbon Dioxide 21 (21-32) mEq/L Anion Gap 17.7 H (5-15) BUN 17 (7-18) mg/dL Creatinine (0.7-1.3) mg/dL Est Cr Clr Drug Dosing 94.87 mL/min Glucose 156 H (70-99) mg/dL Calcium 7.3 L (8.5-10.1) mg/dL Total Bilirubin 0.9 (0.2-1.0) mg/dL AST TNP ALT TNP Alkaline Phosphatase 101 (46-116) U/L Troponin I < 0.017 (0.00-0.056) ng/mL Total Protein (6.4-8.2) g/dl Albumin 3.8 (3.4-5.0) g/dl Globulin 3.8 gm/dL Albumin/Globulin Ratio 1.0 (1-2) Meds: Medications Discontinued Medications Generic Name Dose Route Start Last Admin Trade Name Freq PRN Reason Stop Dose Admin Famotidine 20 mg 07/18/20 16:20 07/18/20 16:33 Famotidine 20 Mg/2 Ml Sdv IVPUSH 07/18/20 16:21 20 mg ONETIME ONE Administration - Re-Assessments/Exams Free Text/Narrative Re-Assessment/Exam: 07/18/20 18:55 Portable view of the chest was reviewed by myself and Dr. Easton and nothing acute is appreciated. Formal radiologist read is pending. 07/18/20 19:01 Hematology reveals a WBC of 9.53, hemoglobin 16.5, hematocrit 47.4, chemistry reveals a sodium of 138, potassium 3.7, anion gap 17.7, BUN 17, creatinine was not able to be resulted out due to the fact that the sample was lipemic, patient was redrawn 2 hours later, glucose is 156, calcium 7.3, troponin is less than 0.017, Patient states that he is feeling much better and his numbness and tingling has resolved. I am just awaiting the patient's redrawn lab work and then he will likely be discharged to home. 07/18/20 19:26 Lab work was not redrawn for what ever reason, patient does not want to stick around here for another 2 hours. I discussed with him the need to take Benadryl 25 mg every 6 hours for the next 48 hours and Pepcid 20 mg daily for next 5 days. He is agreeable to this I also recommend that he follow-up with his primary care provider Latisha Pastor in the clinic early next week, he states he will have this done. Departure - Departure Time of Disposition: 19:27 Disposition: Home, Self-Care 01 Condition: Good Clinical Impression: Allergic reaction to COVID-19 vaccine - Discharge Information Referrals: Latisha Pastor PA-C [Primary Care Provider] - Forms: ED Department Discharge Additional Instructions: You were seen in the emergency department today with complaints of allergic reaction after receiving your Covid vaccination. You were given epinephrine, Benadryl, and albuterol nebulizer treatment, and Pepcid. Labs were completed and these were essentially unremarkable. However, your kidney function tests could not be completed due to high level of fat content in your blood. This would not change our course of treatment today. Chest x-ray and EKG were also unremarkable. You stated that your breathing and numbness to your face and lips have felt much better. Recommend that for the next 24 hours you continue to take Benadryl 25 mg every 6 hours. Also recommend that you take Pepcid 20 mg daily for the next 5 days. Follow-up with your primary care provider early next week. She will also need to repeat your labs at that time. You should not receive your second Covid vaccination as you will likely have a worse response. Should your condition worsen or change, do not hesitate returning to the emergency department. Sepsis Event Note (ED) - Evaluation Sepsis Screening Result: No Definite Risk - Focused Exam Vital Signs: Vital Signs Temp Pulse Resp BP Pulse Ox 07/18/20 16:15 98.1 F 88 18 137/82 94 L - My Orders Last 24 Hours: My Active Orders 07/18/20 16:55 Chest 1V Frontal [CR] Stat 07/18/20 17:10 COMPREHENSIVE METABOLIC PN,CMP [CHEM] Stat TROPONIN I [CHEM] Stat - Assessment/Plan Last 24 Hours: My Active Orders 07/18/20 16:55 Chest 1V Frontal [CR] Stat 07/18/20 17:10 COMPREHENSIVE METABOLIC PN,CMP [CHEM] Stat TROPONIN I [CHEM] Stat
--- NOTE | 2020-07-19 08:49 | CR ---
Chest: Portable view of the chest was obtained. Comparison: Prior chest x-ray of 02/14/20. Heart size and mediastinum are normal. Lungs are clear with no acute parenchymal change. No acute osseous finding is appreciated. Impression: 1. Nothing acute is seen on frontal chest x-ray. Diagnostic code #1
== END 2020-07-18 19:37 | disposition home or self-care (01) ==
LOC: JD.ED 16:05
DX: R20.2 Paresthesia of skin (principal); T50.B95A Adverse effect of other viral vaccines, initial encounter; Z91.030 Bee allergy status
CPT/HCPCS: 36415; 71045; 80053; 84484; 85025; 96374; 99284; J3490; 99283

== ENCOUNTER 2020-10-16 10:49 | Emergency (ER) | payer BC ==
[2020-10-16] MEDS ORDERED: diphenhydrAMINE 50 MG/ML SDV IVPUSH ONE (11:16)
[2020-10-16] MEDS ORDERED: methylPREDNISolone Sodium Succinate 125 MG/2 ML SDV IVPUSH ONE (11:16)
[2020-10-16] MEDS ORDERED: Sodium Chloride 0.9% 10 ML Syringe FLUSH PRN (11:16)
[2020-10-16] MEDS ORDERED: Sodium Chloride 0.9% 1,000 ML IV ONE (11:16)
[2020-10-16] MEDS ORDERED: Famotidine 20 MG/2 ML SDV IVPUSH ONE (11:16)
--- NOTE | 2020-10-16 11:23 | EDM.PDOC ---
ED HPI GENERAL MEDICAL PROBLEM - General Chief Complaint: Allergic Reaction Stated Complaint: CHEST PAIN SOB Time Seen by Provider: 10/16/20 11:11 Source of Information: Reports: Patient, RN Notes Reviewed History Limitations: Reports: No Limitations - History of Present Illness INITIAL COMMENTS - FREE TEXT/NARRATIVE: Patient is a 50-year-old male who presents to the ER for the evaluation of an allergic reaction. Patient notes that he got his first injection of the Moderna Covid vaccine sometime ago and states that he had a pretty severe reaction, he was wondering if he was an allergic to some of the components of this, so he is was set up to see an facility technician in [place] for ongoing testing. He states that he went to his appointment yesterday, and had parts of the vaccine from what he understood injected into his arm, and had a local reaction right away, the area is still red, inflamed, and tender to the touch on his left anterior forearm. Patient states that today he developed some chest pain, shortness of breath, headache and just generalized feelings of being unwell. He is also complaining of his throat feeling a little "tingly" or tight. He has not had any fevers or chills, cough, nausea/vomiting/diarrhea. States that he did call the allergy clinic, and they directed him to come to the ER for evaluation. States that he did take 25 mg Benadryl prior to coming to the ER. Patient's primary care provider is Latisha Pastor. Chest Pain Score (Numeric/FACES): 7 - Related Data Allergies Allergy/AdvReac Type Severity Reaction Status Date / Time bees Allergy Severe Hives Uncoded 10/16/20 11:04 Moderna COVID Vaccine Allergy Severe Shortness Uncoded 10/16/20 11:04 of Breath Home Meds: Home Meds Gabapentin [Neurontin] 300 mg PO DAILY 10/16/20 [History] Gabapentin [Neurontin] 900 mg PO BEDTIME 10/16/20 [History] atorvaSTATin [Lipitor] 40 mg PO BEDTIME 10/16/20 [History] predniSONE 20 mg PO ASDIRECTED #15 tab 10/16/20 [Rx] Past Medical History HEENT History: Reports: Impaired Vision Other HEENT History: wears eyeglasses Cardiovascular History: Reports: High Cholesterol Respiratory History: Reports: Pneumonia, Recurrent Gastrointestinal History: Reports: GERD Musculoskeletal History: Reports: Back Pain, Chronic Other Musculoskeletal History: 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 Musculoskeletal Surgical History: Reports: Other (See Below) Other Musculoskeletal Surgeries/Procedures:: cyst removed T5-T6 area Social & Family History - Family History Cardiac: Reports: High Cholesterol, Hypertension Endocrine/Metabolic: Reports: Diabetes, type II Oncologic: Reports: Colon, Prostate - Tobacco Use Tobacco Use Status *Q: Current Every Day Tobacco User Years of Tobacco use: 30 Packs/Tins Daily: 0.2 - Caffeine Use Caffeine Use: Reports: Coffee - Recreational Drug Use Recreational Drug Use: No ED ROS ALLERGIC REACTION - Review of Systems Review Of Systems: Comprehensive ROS is negative, except as noted in HPI. ED EXAM GENERAL NO PERIP PULSE - Physical Exam Exam: See Below Exam Limited By: No Limitations General Appearance: Alert, WD/WN, No Apparent Distress Eye Exam: Bilateral Eye: EOMI, Normal Inspection, PERRL Throat/Mouth: Normal Inspection, Normal Lips, Normal Teeth, Normal Gums, Normal Oropharynx, Normal Voice, No Airway Compromise Head: Atraumatic Neck: Normal Inspection, Supple, Non-Tender, Full Range of Motion Respiratory/Chest: No Respiratory Distress, Lungs Clear, Normal Breath Sounds, No Accessory Muscle Use, Chest Non-Tender Cardiovascular: Normal Peripheral Pulses, Regular Rate, Rhythm, No Edema GI/Abdominal: Normal Bowel Sounds, Soft, Non-Tender, No Distention, No Mass Extremities: Normal Inspection, Normal Capillary Refill Neurological: Alert, Oriented, Normal Cognition, No Motor/Sensory Deficits Psychiatric: Normal Affect, Normal Mood Skin Exam: Warm, Dry, Intact, No Rash, Erythema (To Left anterior forearm, there is an erythemtous raised welt that is tender, roughly 5x5 cm) #1 Interpretation EKG Date: 10/16/20 Time: 11:07 Rhythm: NSR Rate (Beats/Min): 82 [place]: Normal P-Wave: Present QRS: Normal ST-T: Normal QT: Normal Comparison: NA - No Prior EKG EKG Interpretation Comments: No obvious ischemia or acute ST changes noted, reviewed by myself and Dr. Garrido. Course - Vital Signs Last Recorded V/S: Last Vital Signs Temp 97.4 F 10/16/20 11:00 Pulse 82 10/16/20 11:00 Resp 18 10/16/20 11:00 BP 141/92 H 10/16/20 11:00 Pulse Ox 94 L 10/16/20 11:00 - Orders/Labs/Meds Orders: Active Orders 24 hr Category Date Time Status EKG 12 Lead [EKG Documentation Completion] [RC] ROUTINE Care 10/16/20 11:07 Active Peripheral IV Care [] . DIRECTED Care 10/16/20 11:17 Ordered Sodium Chloride 0.9% [Normal Saline] 1,000 ml Med 10/16/20 11:16 Ordered IV ONETIME Sodium Chloride 0.9% [Saline Flush] Med 10/16/20 11:16 Ordered 10 ml FLUSH ASDIRECTED PRN Peripheral IV Insertion Adult [OM.PC] Stat Oth 10/16/20 11:17 Ordered Medication Orders Sodium Chloride (Normal Saline) 1,000 mls @ 500 mls/hr IV ONETIME ONE Stop: 10/16/20 13:15 Last Admin: 10/16/20 11:32 Dose: 500 mls/hr Documented by: PHANI Sodium Chloride (Sodium Chloride 0.9% 10 Ml Syringe) 10 ml FLUSH ASDIRECTED PRN PRN Reason: Keep Vein Open Last Admin: 10/16/20 11:33 Dose: 10 ml Documented by: PHANI Labs: Laboratory Tests 10/16/20 10/16/20 Range/Units 11:04 11:04 WBC 7.76 (4.23-9.07) K/mm3 RBC 5.36 (4.63-6.08) M/mm3 Hgb 14.1 D (13.7-17.5) gm/dl Hct 43.7 (40.1-51.0) % MCV 81.5 (79.0-92.2) fl MCH 26.3 (25.7-32.2) pg MCHC 32.3 (32.2-35.5) g/dl RDW Std Deviation 42.6 (35.1-43.9) fL Plt Count 165 (163-337) K/mm3 MPV 10.5 (9.4-12.3) fl Neut % (Auto) 66.3 (34.0-67.9) % Lymph % (Auto) 19.6 L (21.8-53.1) % [place] % (Auto) 8.6 (5.3-12.2) % Eos % (Auto) 4.9 (0.8-7.0) Baso % (Auto) 0.3 (0.1-1.2) % Neut # (Auto) 5.15 (1.78-5.38) K/mm3 Lymph # (Auto) 1.52 (1.32-3.57) K/mm3 [place] # (Auto) 0.67 (0.30-0.82) K/mm3 Eos # (Auto) 0.38 (0.04-0.54) K/mm3 Baso # (Auto) 0.02 (0.01-0.08) K/mm3 Sodium 145 (136-145) mEq/L Potassium 3.7 (3.5-5.1) mEq/L Chloride 111 H (98-107) mEq/L Carbon Dioxide 21 (21-32) mEq/L Anion Gap 16.7 H (5-15) BUN 11 (7-18) mg/dL Creatinine 0.8 (0.7-1.3) mg/dL Est Cr Clr Drug Dosing 105.58 mL/min Estimated GFR (MDRD) > 60 (>60) mL/min BUN/Creatinine Ratio 13.8 L (14-18) Glucose 158 H (70-99) mg/dL Calcium 8.2 L (8.5-10.1) mg/dL Total Bilirubin 0.4 (0.2-1.0) mg/dL AST 18 (15-37) U/L ALT 48 (16-63) U/L Alkaline Phosphatase 94 (46-116) U/L Troponin I < 0.017 (0.00-0.056) ng/mL Total Protein 6.7 (6.4-8.2) g/dl Albumin 3.6 (3.4-5.0) g/dl Globulin 3.1 gm/dL Albumin/Globulin Ratio 1.2 (1-2) Meds: Medications Generic Name Dose Route Start Last Admin Trade Name Freq PRN Reason Stop Dose Admin Sodium Chloride 1,000 mls @ 500 mls/hr 10/16/20 11:16 10/16/20 11:32 Normal Saline IV 10/16/20 13:15 500 mls/hr ONETIME ONE Administration Sodium Chloride 10 ml 10/16/20 11:16 10/16/20 11:33 Sodium Chloride 0.9% 10 Ml Syringe FLUSH 10 ml ASDIRECTED PRN Administration Keep Vein Open Discontinued Medications Generic Name Dose Route Start Last Admin Trade Name Rebeka PRN Reason Stop Dose Admin Diphenhydramine HCl 25 mg 10/16/20 11:16 10/16/20 11:32 Diphenhydramine 50 Mg/Ml Sdv IVPUSH 10/16/20 11:17 25 mg ONETIME ONE Administration Famotidine 20 mg 10/16/20 11:16 10/16/20 11:33 Famotidine 20 Mg/2 Ml Sdv IVPUSH 10/16/20 11:17 20 mg ONETIME ONE Administration Methylprednisolone Sodium Succinate 125 mg 10/16/20 11:16 10/16/20 11:32 Methylprednisolone Sodium Succinate 125 Mg/2 Ml Sdv IVPUSH 10/16/20 11:17 125 mg ONETIME ONE Administration - Re-Assessments/Exams Free Text/Narrative Re-Assessment/Exam: 10/16/20 11:39 Patient presents to the ER for evaluation of an allergic reaction. EKG was done at time of triage, demonstrates no acute ST change or abnormalities. Basic labs will be obtained, will give him some medications for the allergic reaction and try to get a hold of the providers at the allergy clinic in [place] for further management if they would deem warranted. 10/16/20 12:40 Labs have been resulted, and everything is unremarkable at this time. Have tried to call the allergy clinic in [place] for ongoing management, but they did not answer the phone at this time. We will not keep the patient here for an extended amount of time, but I would like to speak with the provider on the other and to see if they want anything done specifically other than what has been rendered. 10/16/20 12:46 I was able to talk with nursing staff at the allergy clinic, and they do suggest giving the patient a burst of oral steroids for ongoing management. He is to follow-up with Dr. Carroll if his symptoms seem to be worsening, or they are failing to improve. We will go ahead and give him the night off from work, and get him on some oral steroids and discharge him home with general recommendations at this time. Departure - Departure Time of Disposition: 12:47 Disposition: Home, Self-Care 01 Condition: Good Clinical Impression: Allergic reaction to allergy skin test - Discharge Information *PRESCRIPTION DRUG MONITORING PROGRAM REVIEWED*: No *COPY OF PRESCRIPTION DRUG MONITORING REPORT IN PATIENT LACY: No Referrals: Latisha Pastor PA-C [Primary Care Provider] - Forms: ED Department Discharge, ED Return to Work/School Form Additional Instructions: You were seen in the ER today for your suspected allergic reaction. This is thought to be due to the injection from the allergy clinic that you were given on 10/15/2020. You were given some IV medications to help relieve these symptoms, this seemed to work well for you. This included IV steroids, IV Pepcid, and IV Benadryl, along with some IV fluids. You will be started on a steroid burst, please take as directed until gone. This medication was electronically sent to the [facility] pharmacy located on [address]. You may take Benadryl 25 mg every 4 hours as needed for further symptomatic relief, along with Pepcid 20 mg twice daily when you are taking the prednisone. If the Benadryl makes you too sleepy, you may use an [id number] antihistamine shant like Zyrtec (cetirizine) or [place] (fexofenadine) per biological science technician instructions during daytime hours. Please follow-up with your facility technician, or primary care provider, as warranted, to make sure that symptoms are improving as expected. Please return to the ER at any time if your symptoms change or worsen. Sepsis Event Note (ED) - Evaluation Sepsis Screening Result: No Definite Risk - Focused Exam Vital Signs: Vital Signs Temp Pulse Resp BP Pulse Ox 10/16/20 11:00 97.4 F 82 18 141/92 H 94 L - My Orders Last 24 Hours: My Active Orders 10/16/20 11:07 EKG 12 Lead [EKG Documentation Completion] [RC] ROUTINE 10/16/20 11:16 Sodium Chloride 0.9% [Normal Saline] 1,000 ml IV ONETIME Sodium Chloride 0.9% [Saline Flush] 10 ml FLUSH ASDIRECTED PRN 10/16/20 11:17 Peripheral IV Care [RC] . DIRECTED Peripheral IV Insertion Adult [OM.PC] Stat - Assessment/Plan Last 24 Hours: My Active Orders 10/16/20 11:07 EKG 12 Lead [EKG Documentation Completion] [] ROUTINE 10/16/20 11:16 Sodium Chloride 0.9% [Normal Saline] 1,000 ml IV ONETIME Sodium Chloride 0.9% [Saline Flush] 10 ml FLUSH ASDIRECTED PRN 10/16/20 11:17 Peripheral IV Care [RC] . DIRECTED Peripheral IV Insertion Adult [OM.PC] Stat
== END 2020-10-16 13:02 | disposition home or self-care (01) ==
LOC: JD.ED 10:49
DX: R07.9 Chest pain, unspecified (principal); T50.B95A Adverse effect of other viral vaccines, initial encounter; E78.00 Pure hypercholesterolemia, unspecified; E66.9 Obesity, unspecified; Z68.32 Body mass index [BMI] 32.0-32.9, adult; Z88.7 Allergy status to serum and vaccine; Z91.030 Bee allergy status; Z72.0 Tobacco use
CPT/HCPCS: 36415; 80053; 84484; 85025; 93005; 96374; 96375; 99285; J1200; J2930; J3490; J7030; 93010; 99283

== ENCOUNTER 2021-08-11 14:11 | Emergency (ER) | payer BC, OTHER ==
[2021-08-11] MEDS ORDERED: Cyclobenzaprine 10 MG Tab PO ONE (14:52)
[2021-08-11] MEDS ORDERED: Ketorolac 60 MG/2 ML SDV IM ONE (14:52)
== END 2021-08-11 16:00 | disposition home or self-care (01) ==
LOC: JD.ED 14:11
DX: M54.42 Lumbago with sciatica, left side (principal); M54.41 Lumbago with sciatica, right side; E78.00 Pure hypercholesterolemia, unspecified; E66.9 Obesity, unspecified; Z68.30 Body mass index [BMI] 30.0-30.9, adult; Z91.030 Bee allergy status; Z88.7 Allergy status to serum and vaccine; Z79.899 Other long term (current) drug therapy; Z86.16 Personal history of COVID-19
CPT/HCPCS: 72100; 96372; 99283; A9270; J1885; 99284

== ENCOUNTER 2021-09-10 07:40 | Emergency (ER) | payer OTHER ==
[2021-09-10] MEDS ORDERED: HYDROmorphone 1 MG/ML Syringe IVPUSH ONE (08:23)
[2021-09-10] MEDS ORDERED: Promethazine 25 MG/ML SDV IM ONE (08:23)
[2021-09-10] MEDS ORDERED: HYDROmorphone 1 MG/ML Syringe IM ONE (08:29)
== END 2021-09-10 08:58 | disposition home or self-care (01) ==
LOC: JD.ED 07:40
DX: M47.26 Other spondylosis with radiculopathy, lumbar region (principal); E78.00 Pure hypercholesterolemia, unspecified; E66.9 Obesity, unspecified; Z68.32 Body mass index [BMI] 32.0-32.9, adult; Z91.030 Bee allergy status; Z88.7 Allergy status to serum and vaccine; Z79.899 Other long term (current) drug therapy; Z86.16 Personal history of COVID-19
CPT/HCPCS: 96372; 99283; J1170; J2550

== ENCOUNTER 2021-11-23 08:24 | Emergency (ER) | payer BC ==
[2021-11-23] MEDS ORDERED: Sodium Chloride 0.9% 10 ML Syringe FLUSH PRN (09:24)
[2021-11-23] MEDS ORDERED: Ondansetron 4 MG/2 ML SDV IVPUSH ONE (09:24)
[2021-11-23] MEDS ORDERED: Sodium Chloride 0.9% 1,000 ML IV SCH (09:30)
[2021-11-23 10:09] LABS: ESTIMATED GFR 105 mL/min (>60)
[2021-11-23 10:25] LABS: CORONAVIRUS COVID-19 NAA NEGATIVE (NEGATIVE)
== END 2021-11-23 11:00 | disposition home or self-care (01) ==
LOC: JD.ED 08:24
DX: A08.4 Viral intestinal infection, unspecified (principal); E78.00 Pure hypercholesterolemia, unspecified; E66.9 Obesity, unspecified; Z68.31 Body mass index [BMI] 31.0-31.9, adult; Z91.030 Bee allergy status; Z88.7 Allergy status to serum and vaccine; Z79.899 Other long term (current) drug therapy; Z86.16 Personal history of COVID-19; Z20.822 Contact with and (suspected) exposure to COVID-19
CPT/HCPCS: 0241U; 36415; 71045; 80053; 83690; 85025; 86140; 96361; 96374; 99284; J2405; J3490; J7030; 99283

== ENCOUNTER 2022-04-22 04:55 | Emergency (ER) | payer BC, OTHER | END 2022-04-22 06:23 | disposition home or self-care (01) | LOC: JD.ED 04:55 | DX: S93.402A Sprain of unspecified ligament of left ankle, initial encounter (principal); S83.92XA Sprain of unspecified site of left knee, initial encounter; K21.9 Gastro-esophageal reflux disease without esophagitis; E66.9 Obesity, unspecified; Z68.33 Body mass index [BMI] 33.0-33.9, adult; Z91.030 Bee allergy status; Z88.7 Allergy status to serum and vaccine; Z79.899 Other long term (current) drug therapy; Z86.16 Personal history of COVID-19; W00.0XXA Fall on same level due to ice and snow, initial encounter | CPT/HCPCS: 73590-26-LT; 73590-LT; 99282; 99283 ==

== ENCOUNTER → 2022-09-24 | Day surgery (SDC) | payer OTHER ==
[~2022-09-24] MED LIST: Lactated Ringers 1,000 ML IV SCH; Lidocaine 1% 2 ML ONE; Midazolam 1 MG/ML 2 ML SDV ONE; Propofol 200 MG/20 ML SDV ONE; Sodium Chloride 0.9% 10 ML Syringe FLUSH PRN; Sodium Chloride 0.9% 10 ML Syringe FLUSH SCH; fentaNYL 100 MCG/2 ML SDV ONE
== END | disposition home or self-care (01) ==
LOC: JD.SDS 08:14
PROVIDERS: ATTEND Surgery
DX: Z12.11 Encounter for screening for malignant neoplasm of colon (principal); D12.0 Benign neoplasm of cecum; D12.2 Benign neoplasm of ascending colon; E78.00 Pure hypercholesterolemia, unspecified; G62.9 Polyneuropathy, unspecified; K64.4 Residual hemorrhoidal skin tags; E78.1 Pure hyperglyceridemia; F41.9 Anxiety disorder, unspecified; K21.9 Gastro-esophageal reflux disease without esophagitis; G43.909 Migraine, unspecified, not intractable, without status migrainosus; E66.9 Obesity, unspecified; Z88.7 Allergy status to serum and vaccine; Z80.0 Family history of malignant neoplasm of digestive organs; Z83.71 Family history of colonic polyps; Z79.82 Long term (current) use of aspirin; Z79.899 Other long term (current) drug therapy; Z87.891 Personal history of nicotine dependence; Z91.030 Bee allergy status; Z68.32 Body mass index [BMI] 32.0-32.9, adult
CPT/HCPCS: 45385; J2250; J2704; J3010; J7120; J3490

== ENCOUNTER 2022-11-10 00:32 | Emergency (ER) | payer OTHER | END 2022-11-10 03:02 | disposition home or self-care (01) | LOC: JD.ED 00:32 | DX: R53.81 Other malaise (principal); E78.00 Pure hypercholesterolemia, unspecified; E66.9 Obesity, unspecified; Z68.33 Body mass index [BMI] 33.0-33.9, adult; Z86.16 Personal history of COVID-19; Z87.891 Personal history of nicotine dependence; Z20.822 Contact with and (suspected) exposure to COVID-19; Z91.030 Bee allergy status; Z88.7 Allergy status to serum and vaccine; Z79.899 Other long term (current) drug therapy | CPT/HCPCS: 99282; 99284; U0002 ==